=== PATIENT | male | born 1995 | race Caucasian/White ===

== ENCOUNTER 2017-02-27 10:30 | Emergency (ER) | payer SELFPAY ==
[~2017-02-27] VITALS: Ht 182.9 cm; Wt 113.4 kg
[~2017-02-27 10:30] MED LIST: ACET-2321 PO; CEPH-583 PO
--- OUTSIDE RECORDS SUMMARY | 2017-02-27 10:34 | XMS REPORT | Continuity of Care Document ---
Author Author [facility] Organization [facility] Address Unknown Phone Unavailable Support Name Relationship Address Phone SASHA FERGUSON APRN Caregiver [address] [place] [address] Unavailable TAM DODSON Next Of Kin [address] [place] [address] C Insurance Providers Guarantor Manuel Sebastian Address [address] [place] [address] C Payer Self Pay Subscriber's Name Manuel Sebastian Relationship 18 Self Chief Complaint and Reason for Visit Chief Complaint Skin Rash/Abscess/Injury Reason for Visit Cellulitis Problems Past Problems Medical Problem Onset Date Cellulitis Unknown Medications Current Home Medications Medication Dose Units Route Directions Days Qty Instructions Start Date Acetaminophen (Tylenol) 325 Mg Tablet 1 Tab Oral Every 4 Hours Prn 30 Tablet 02/26/17 Cephalexin (Keflex) 500 Mg Capsule 1 Cap Oral Four Times Daily 10 Days 40 Capsule 02/26/17 Social History No social history. Hospital Discharge Instructions No hospital discharge instructions. Plan of Care Discharge Date 02/26/17 2:07pm Disposition 01 DISCHARGED HOME, SELF-CARE Condition at Discharge Stable Instructions/Education Provided Cellulitis (ED) Prescriptions See Medication Section Additional Instructions/Education 1. May soak hand in warm water 2. Take all antibiotics as prescribed 3. Return to clinic or go to ER if streaking up arm occurs or high fever or significant worsening of finger. Functional Status No functional status results. Allergies, Adverse Reactions, Alerts No known allergies. Immunizations No immunization records. Vital Signs Acute Vital Signs Vital Response Date/Time Height (Inches) 72.00 inches 02/26/2017 1:54pm Weight (Kilograms) 113.900 kg 02/26/2017 1:54pm Body Mass Index (BMI) 34.0 02/26/2017 1:54pm Results No known relevant diagnostic tests, laboratory data and/or discharge summary. Procedures No known history of procedures. Encounters Encounter Location Arrival/Admit Date Discharge/Depart Date Attending Provider Departed Emergency Room [facility] 02/26/17 1:46pm 02/26/17 2: 07pm SASHA FERGUSON APRN Recent Diagnosis
[2017-02-27 10:39] VITALS: Ht 182.9 cm; Wt 113.4 kg
--- NOTE | 2017-02-27 10:45 | NUR ---
REPORT REPORT GIVEN TO DOMENIC BUTCHER.
[2017-02-27] MEDS ORDERED: IBUP-1724 PO (10:58)
--- NOTE | 2017-02-27 11:05 | NUR ---
DR LOMBARDI IN
--- NOTE | 2017-02-27 11:26 | ERPDOC ---
Departure Disposition Decision Date: February 27, 2017 Disposition Decision Time: 12:00 Disposition: 02 TO [facility] Impression Impression Impression: Primary Impression: Cellulitis of right hand Additional Impression: Lymphangitis Severity: Moderate Condition: Improved Seen By: Physician only Problems/Meds/Labs Reviewed?: Yes Medications reviewed and manag: Yes Follow up care ordered?: Yes Mental Status: Alert, Oriented HPI - General Medical General Chief Complaint: Skin Rash/Abscess Stated Complaint: RT HAND SWEELING Time Seen by Provider: 10:42 Source: patient Exam Limitations: no limitations HPI - General Medical Initial Comments 22-year-old male presents to the emergency department with a chief complaint of redness and swelling to his right hand. Patient noted onset of symptoms 3 days ago. Patient was seen at urgent care and started on Keflex one day ago. Patient has been compliant with Keflex. Patient has noted increasing redness at the base of the middle finger and now the erythema has started to spread up the hand to the forearm. Patient notes a moderate dull aching discomfort without radiation. Pain increases with manipulation of the affected digit. No other complaints or associated symptoms. Patient denies any injury or trauma. He notes that the symptoms began after a callus from his job was removed accidentally from the base of the affected digit. Symptoms have been persisted in nature since onset. Occurred At: home Onset: Gradual Allergies: Coded Allergies: No Known Allergies (Unverified , 02/27/17) Past History Past Medical History Pt denies signifigant [facility] Surgical History Denies Surgeries Family History Family History: Negative Social History Smoking Status: Current every day smoker # of Years: 4 Second Hand Exposure: No Substance Use Type: does not use Alcohol Intake: occasionally Current Occupational Status: employed Review of Systems Constitutional Constitutional: DENIES: chills, fever Eyes General: DENIES: erythema, exudate Lids/Accessories: DENIES: erythema, swelling Vision: DENIES: acuity, blurring ENMT Ears: DENIES: drainage, erythema Hearing: DENIES: hearing loss Balance: DENIES: ataxia, falling to one side Sinuses: DENIES: congestion, pain Nose: DENIES: nosebleeds, pain Mouth/Throat: DENIES: painful swallowing, sore throat Teeth: DENIES: pain Jaw: DENIES: pain Cardiovascular Cardiac: DENIES: chest pain, dyspnea on exertion Rhythm/Rate: DENIES: irregular beat, palpitations Vascular: DENIES: pedal edema, unilateral swelling Pulmonary Respiratory: DENIES: cough, dyspnea, pleuritic chest pain, sputum GI Upper Abdomen: DENIES: nausea, pain, vomiting Lower Abdomen: DENIES: diarrhea, pain General: DENIES: dysuria, frequency, urgency Musculoskeletal General: tenderness, DENIES: joint pain Integumentary Skin: DENIES: itching, rash Neurological General: DENIES: change in strength, headache, numbness, weakness Psychiatric Psychiatric: DENIES: emotional instability, suicidal ideation/attempt Endocrine Endocrine: DENIES: polyphagia Hematologic/Lymphatic Hematologic/Lymphatic: DENIES: frequent nosebleeds, lymphadenopathy Allergic/Immunological Allergic/Immunoligical: DENIES: allergic reactions, hives Physical Exam General General Nourishment: well nourished, well developed, appears stated age, no acute distress, adult General Body Habitus: well groomed Vitals and Pain First Documented Vital Signs Date Time Temp Pulse Resp B/P Pulse Ox O2 Delivery O2 Flow Rate FiO2 02/27/17 10:39 99.1 100 16 156/88 100 Room Air Weight: Kilograms: 113.400 Height (feet): 6 Height (inches): 0 Triage Pain Scale: RN VS reviewed by Provider: Yes Normal Exams: Head: Normocephalic w/o trauma Eyes: Pupils are PERRLA w/ EOMI, No scleral icterus, irritation, or foreign bodies noted ENMT: No facial trauma, nasal exudates, pharyngeal erythema, or exudates are noted Dental: No fractured, loose, or missing teeth noted Neck: Full range of motion, without adenopathy, JVD, bruits or thyromegaly Chest/Resp: Clear all vargas, with good airflow, and symmetry bilaterally CV: Regular rate and rhythm, without murmur or gallop, Pulses 2+ all extremities, capillary refill, <2 seconds all ext., no pedal edema noted Abdomen: Bowel sounds positive, soft, non-tender, non-distended, no hepatosplenomegaly, masses or bruits noted Lymphatic: No lymphadenopathy, or lymphedema noted Integumentary: No rashes, hives, or bruising noted, hair and nails, without abnormality Neurologic: Patient is alert, and oriented, cranial nerves, motor/sensory/ cerebellar, exams w/o gross deficits, to observation Psychiatric: Patient exhibits, appropriate attention, emotion and affect Musculoskeletal (brief) Comments R HAND - long finger is erythematous around the base with lymphangitis extending to the dorsal surface of the hand and forearm. Patient has decreased range of motion secondary to pain and swelling. Pulses are intact. Sensation is intact. Capillary refill less than 2. No obvious sign of abscess. Patient does hold the digit in slight flexion. Patient is tender to palpation over the flexor tendon sheath. Patient has increased pain with passive motion of the digit. No focal bony tenderness. Generalized tenderness to palpation. Skin is intact. No other tenderness in the right upper extremity. All other extremities are unremarkable. Differential Diagnoses Considering: Other (cellulitis/lymphangitis/flexor tenosynovitis/abscess) Progress Results/Orders Orders Procedure Category Date Status Time Cbc W/Auto LAB 02/27/17 Complete Diff-Reflex Manual Cmp - Comprehensive LAB 02/27/17 Complete Metabolic Lactate - Lactic Acid LAB 02/27/17 Complete Blood Culture DAPHNEY 02/27/17 In Process 11:05 Procalcitonin LAB 02/27/17 Complete 11:05 Iv Lock (Ed Only) EDM 02/27/17 Transmitted 11:05 Lactate - Lactic Acid LAB 02/27/17 Logged 15:35 Hand Right 3 View RAD 02/27/17 Resulted 11:05 Ampicillin/Sulbactam PHA 02/27/17 In Process (Unasyn) 12:15 Normal Saline (Normal PHA 02/27/17 In Process Saline Iv) 12:15 Morphine Sulfate PHA 02/27/17 Complete (Morphine) 12:15 Ondansetron Inj PHA 02/27/17 Complete (Zofran) 12:15 Vancomycin (Vancocin) PHA 02/27/17 In Process 12:45 Lab Results Laboratory Tests Test 02/27/17 11:25 White Blood Count 12.8T/MM3 Red Blood Count 5.70M/MM3 Hemoglobin 17.9GM/DL Hematocrit 50.0% Mean Corpuscular Volume 87.7UM3 Mean Corpuscular Hemoglobin 31.4UUG Mean Corpuscular Hemoglobin Concent 35.8GM/DL RDW Standard Deviation 42.6FL Platelet Count 258T/MM3 Mean Platelet Volume 9.0UM3 Immature Granulocyte % (Auto) 0.2% Neutrophils (%) (Auto) 75.7% Lymphocytes (%) (Auto) 16.8% Monocytes (%) (Auto) 6.7% Eosinophils (%) (Auto) 0.5% Basophils (%) (Auto) 0.1% Absolute Immature Granulocyte (auto 0.02T/MM3 Absolute Neutrophils (auto) 9.7T/MM3 Absolute Lymphocytes (auto) 2.1T/MM3 Absolute Monocytes (auto) 0.9T/MM3 Absolute Eosinophils (auto) 0.1T/MM3 Absolute Basophils (auto) 0.0T/MM3 Turbidity < 20 Sodium Level 143MEQ/L Potassium Level 4.6MEQ/L Chloride Level 102MEQ/L Carbon Dioxide Level 29MEQ/L Anion Gap 12MEQ/L Blood Urea Nitrogen 15.0MG/DL Creatinine 0.9MG/DL Glomerular Filtration Rate Calc 106 BUN/Creatinine Ratio 17RATIO Glucose Level 104MG/DL Calculated Osmolality 276MOSM/KG Calcium Level 10.2MG/DL Total Bilirubin 1.00MG/DL Icterus Index < 2 Aspartate Amino Transf (AST/SGOT) 22U/L Alanine Aminotransferase (ALT/SGPT) 37U/L Alkaline Phosphatase 75U/L Total Protein 7.2G/DL Albumin 5.0G/DL Globulin 2.2G/DL Albumin/Globulin Ratio 2.3RATIO Plasma Lactate Pending Procalcitonin < 0.05NG/ML Chemistry Specimen Hemolysis 17 Medications Current ED Medications Ampicillin Sodium/ Sulbactam Sodium 3 g/Sodium Chloride 100 ml @ 200 mls/hr Q6H IV Last administered on 02/27/17 12:49; Start 02/27/17 at 12:15 Sodium Chloride (Normal Saline IV) 1,000 ml @ 999 mls/hr Q1H1M ONCE IV Last administered on 02/27/17 12:43; Start 02/27/17 at 12:15; Stop 02/27/17 at 13:15 Morphine Sulfate (Morphine) 4 mg O ONCE IV Last administered on 02/27/17 12: 46; Start 02/27/17 at 12:15; Stop 02/27/17 at 12:16; Status DC Ondansetron HCl 4 mg 4 mg O ONCE IV Last administered on 02/27/17 12:44; Start 02/27/17 at 12:15; Stop 02/27/17 at 12:16; Status DC Vancomycin HCl/ Sodium Chloride (Vancocin/NS) 500 ml @ 250 mls/hr O ONCE IV ; Start 02/27/17 at 12:45; Stop 02/27/17 at 14:44 Progress Progress Labs / imaging were discussed in detail with the patient and questions are answered. Patient is given 1 L of normal saline intravenously. Patient is given 3g Unasyn and vancomycin 2g intravenously in the emergency Department. Patient is given parental narcotic and antiemetic medications intravenously with improvement of symptoms. Patient is discussed with the hospitalist Dr. Gomez whose recommendation is to transfer the patient to [place] as hand surgery is not available at [facility]. Patient is discussed with Dr. Gutierrez whose opinion is the same to transfer the patient to [place] for further evaluation by hand surgery. Patient is in agreement with the current plan of management. Risk versus benefit of transfer is discussed in detail with the patient and family and questions are answered. Patient is stable for transfer to [facility] at this time. Patient is accepted after discussion with Dr. Tonny Kebede (Resident) to the service of Dr. Hugo Fajardo. Patient is currently failing outpatient treatment with Keflex. Xray Xray : Xray: Hand R Interpretation: Normal (No acute bony abnormality. + soft tissue swelling R long finger. ), Reviewed Written Report DESI LOMBARDI DO February 27, 2017 11:26
[2017-02-27 11:35] LABS: BASOPHILS % (AUTO) 0.1 % (0-2); EOSINOPHILS # (AUTO) 0.1 T/MM3 (0-0.5); EOSINOPHILS % (AUTO) 0.5 % (0-4); HGB - HEMOGLOBIN 17.9 GM/DL (13.5-17.5); IMMATURE GRANULOCYTE # (AUTO) 0.02 T/MM3 (0.00-0.03); IMMATURE GRANULOCYTE % (AUTO) 0.2 % (0.0-0.5); LYMPHOCYTES # (AUTO) 2.1 T/MM3 (1-4.8); LYMPHOCYTES % (AUTO) 16.8 % (23-45); MEAN CORPUSCULAR HGB 31.4 UUG (26-34); MEAN CORPUSCULAR HGB CONC(MCHC 35.8 GM/DL (31-37); MEAN CORPUSCULAR VOLUME 87.7 UM3 (80-100); MONOCYTES # (AUTO) 0.9 T/MM3 (0-0.8); MONOCYTES % (AUTO) 6.7 % (0-9.0); NEUTROPHILS #(AUTO)-ABSOLUTE 9.7 T/MM3 (1.8-7.7); NEUTROPHILS % (AUTO) 75.7 % (33-66); WBC - WHITE BLOOD COUNT 12.8 T/MM3 (4.5-11.0)
[2017-02-27 11:43] LABS: LACTATE - LACTIC ACID 1.5 MMOL/L (0.6-2.2)
[2017-02-27 11:44] LABS: ALBUMIN/GLOBULIN RATIO 2.3 RATIO (1.1-2.2); ALKALINE PHOSPHATASE 75 U/L (38-126); ALT (SGPT) 37 U/L (21-72); ANION GAP 12 MEQ/L (5-15); AST (SGOT) 22 U/L (17-59); BUN/CREATININE RATIO 17 RATIO (6-26); CALCIUM 10.2 MG/DL (8.4-10.2); CHLORIDE 102 MEQ/L (98-107); CO2 - CARBON DIOXIDE 29 MEQ/L (22-30); CREATININE 0.9 MG/DL (0.8-1.5); GLOMERULAR FILTRATION RATE 106; GLUCOSE 104 MG/DL (75-110); POTASSIUM 4.6 MEQ/L (3.6-5); SODIUM 143 MEQ/L (134-144); TOTAL PROTEIN 7.2 G/DL (6.3-8.2)
--- NOTE | 2017-02-27 11:49 | DI ---
Indication: ITS.REASON: cellulitis RMF PROCEDURE: HAND RIGHT 3 VIEW: Encounter: Initial Comparison: None Findings: There is no acute fracture, dislocation or malalignment identified. Soft tissue swelling involving the long finger. No periosteal reaction or osteolysis to suggest osteomyelitis. Impression: No acute osseous abnormality. .
[2017-02-27] MEDS ORDERED: NORMAL SALINE 1,000 ML IV ONE (12:15)
[2017-02-27] MEDS ORDERED: ONDANSETRON 4mg/2ml INJECTION IV ONE (12:15)
[2017-02-27] MEDS ORDERED: MORPHINE SULFATE 4 MG SYRINGE IV ONE (12:15)
[2017-02-27] MEDS ORDERED: AMPICILLIN/SULBACTAM 3 G in NORMAL SALINE 100 ML IV SCH (12:15)
--- NOTE | 2017-02-27 12:21 | NUR ---
CARE ASSUMED BY ODALYS SHETH
[2017-02-27] MEDS ORDERED: VANCOMYCIN 2,000 MG in NORMAL SALINE 500 ML IV ONE (12:45)
--- NOTE | 2017-02-27 14:15 | NUR ---
REPORT GIVEN TO DOMENIC PETERS AT WAITING FOR STAT CLEAN ON THE ROOM. SHE WILL CALL WHEN ITS READY FOR TRANSFER
--- NOTE | 2017-02-27 14:45 | NUR ---
STATUS CONTACTED FRANCIS, STILL AWAITING ROOM TO BE CLEANED BEFORE PATIENT CAN BE TRANSFERED. PATIENT GIVEN UPDATE. VERBALIZED UNDERSTANDING.
[2017-02-27 15:15] VITALS: BP 156/81; PULSE 97; RESP 18; TEMP 99.1; O2SAT 99
--- NOTE | 2017-02-27 15:15 | NUR ---
[facility] HERE TO TRANSFER PATIENT TO [place] AT THIS TIME. VANCO CONTINUES TO INFUSE. PATIENT STABLE.
== END 2017-02-27 15:15 | disposition short-term general hospital (02) ==
LOC: ED 10:30
DX: L03.113 Cellulitis of right upper limb (principal); I89.1 Lymphangitis
CPT/HCPCS: 36415; 80053; 83605; 84145; 85025; 87040